=== PATIENT | female | born 1990 | race Caucasian/White ===

== ENCOUNTER → 2020-01-28 16:12 | Outpatient (CLI) | payer OTHER, SELFPAY ==
[2020-01-29 15:47] LABS: Strep Grp B PCR NEG for Grp B Strep
== END ==
PROVIDERS: Family Provider Internal Medicine; PCP Internal Medicine; Visit Provider Family Medicine
DX: Z34.90 Encounter for supervision of normal pregnancy, unspecified, unspecified trimester (principal); Z3A.37 37 weeks gestation of pregnancy
CPT/HCPCS: 87653

== ENCOUNTER 2020-02-15 03:16 | Inpatient (IN) | payer OTHER, SELFPAY ==
[2020-02-15 04:03] LABS: COVID19 -Nasal RAPID Negative (Negative)
[2020-02-15 04:23] VITALS: BP 123/70
[2020-02-15 04:30] LABS: Add Manual Diff / Slide Review NO; Basophils Absolute Auto 100 /uL (0-100); Basophils Percent Auto 0.8 % (0-2); Eosinophils Absolute Auto 400 /uL (0-450); Hematocrit 40.6 % (36-46); Hemoglobin 13.5 g/dL (12.0-16.0); Lymphocytes Absolute Auto 2100 /uL (1100-4500); Lymphocytes Percent Auto 17.6 % (25-40); Mean Corpuscular HGB Conc 33.3 % (30-36); Mean Corpuscular Hemoglobin 31.6 PG (26-34); Monocytes Absolute Auto 1000 /uL (0-900); Monocytes Percent Auto 8.2 % (3-14); Neutrophils Absolute Auto 8500 /uL (1500-7000); Neutrophils Percent Auto 70.4 % (50-75); Platelet Count 215 X10^3/uL (150-400); Red Blood Cell Count 4.28 X10^6/uL (4.0-5.2); Red Cell Distribution Width 14.2 % (11.6-14.8); White Blood Cell Count 12.1 X10^3/uL (4.5-11.0)
--- NOTE | 2020-02-15 07:54 | P.HPOB_ITS ---
OB HPI Date/Time Date of admission: 02/15/20 Date Patient Seen: 02/15/20 Time Patient Seen: 07:54 History of Present Condition Chief complaint: LABOR : 3 Para: 1 Estimated Date of Delivery: 02/16/20 Estimated Gestational Age (weeks): 39w6d Narrative: Ginger Baez is a 29 year old at 39w6d who presented with regular painful contractions. They had be in increasing in frequency and intensity. No LOF. Minimal vaginal spotting. Feeling baby move regularly. History of Present care: good care, initiated at week # (9) and pounds weight gain (40) Dating criteria: LMP confirmed by 1st trimester US Ultrasounds: normal 1st trimester US and normal mid trimester US Obstetrical complications: none Medical complications: none Preadmission Labs Blood type: O (+) positive -: Antibody screen: negative, GBS status: negative, HBsAG: negative, HIV: negative and RPR/VDLR: negative -: Chlamydia screen: not detected and Gonorrhea screen: not detected -: Rubella: immune HCT: 40.6 HCAB: negative PAP: Normal Cell-free DNA: Negative 1 hr GTT: 73 Prior (ies) History: 10/2017 - spontaneous 07/26/18 - viable girl, [id number], 3rd degree perineal laceration Evaluation Evaluation Baseline heart rate: 130 Variability: Moderate (11-25) monitor accelerations: Present monitor decelerations: Absent Contraction Frequency (minutes): 3 Uterine Contraction Intensity: Strong/Firm Cervical dilation (cm): 10 Cervical effacement (%): 100 station: 0 Laboratory results: Laboratory Tests 02/15/20 02/15/20 02/15/20 03:42 04:10 04:10 WBC 12.1 H RBC 4.28 Hgb 13.5 Hct 40.6 MCV 95.0 MCH 31.6 MCHC 33.3 RDW 14.2 Plt Count 215 Neut % (Auto) 70.4 Lymph % (Auto) 17.6 L [place] % (Auto) 8.2 Eos % (Auto) 3.0 Baso % (Auto) 0.8 Neut # (Auto) 8500 H Lymph # (Auto) 2100 [place] # (Auto) 1000 H Eos # (Auto) 400 Baso # (Auto) 100 COVID-19 PCR Negative Blood Type O Positive Antibody Screen Negative [facility] Medical History (Updated 11/25/19 @ 09:05 by Patricia Higgins RN) Subchorionic hematoma (Acute ~07/16/19) (spontaneous vaginal delivery) (Acute ~07/26/18) Surgical History (Updated 11/21/19 @ 14:44 by Leny Smith MA) H/O umbilical hernia repair (Acute ~04/23/18) Family History (Updated 11/21/19 @ 14:39 by Leny Smith MA) Grandfather Hypercholesteremia Father Hypercholesteremia Grandfather Malignant neoplasm of leg Grandmother Hypercholesteremia Diabetes mellitus Social History marital status: household members: spouse and children pets and animals: Yes (cats : Toxos ordered and Normal) education level: college occupational status: employed ([employer]) special west needs: No seatbelt use: always Smoking Status: Never smoker second hand exposure: No alcohol intake: former substance use type: does not use well-balanced diet: daily or most days caffeine: Yes (Occasional) Meds Home Medications and Allergies Home Medications Medication Instructions Recorded Confirmed Type prenat.vits,sangeeta,cab-vnid-fgkoz 1 tab PO DAILY 11/21/19 11/25/19 History Allergies Allergy/AdvReac Type Severity Reaction Status Date / Time hydrocodone [HYDROCODONE] AdvReac Mild nausea Unverified 11/25/19 15:25 Exam Vital Signs (past 8 hours): - 02/15/20 04:23 Blood Pressure 123/70 Narrative Exam Narrative: Gen: laying in bed, moaning through contractions CV: RRR, no murmurs Resp: clear to auscultation bilaterally Abd: soft, gravid, nontender Ext: trace edema Objective Labs Result Diagrams: 02/15/20 04:10 Labs: Laboratory Results - last 24 hr 02/15/20 02/15/20 02/15/20 03:42 04:10 04:10 WBC 12.1 H RBC 4.28 Hgb 13.5 Hct 40.6 MCV 95.0 MCH 31.6 MCHC 33.3 RDW 14.2 Plt Count 215 Neut % (Auto) 70.4 Lymph % (Auto) 17.6 L [place] % (Auto) 8.2 Eos % (Auto) 3.0 Baso % (Auto) 0.8 Neut # (Auto) 8500 H Lymph # (Auto) 2100 [place] # (Auto) 1000 H Eos # (Auto) 400 Baso # (Auto) 100 COVID-19 PCR Negative Blood Type O Positive Antibody Screen Negative Assessment and Plan Assessment and Plan Assessment and Plan narrative: 29yo at 39w6d here in active labor. GBS negative, Rh positive. - Expectant management, anticipate - FHT reassuring, intermittent monitoring per pt request - GBS negative, no prophylaxis indicated - Natural methods for pain control
[2020-02-15] MEDS: OXYTOCIN 10 UNIT/ML VIAL 20 UNIT (08:41)
--- NOTE | 2020-02-15 09:04 | PM.OBPRVD ---
Labor & Delivery Delivery date: 02/15/20 Intrapartal events: None Estimated blood loss (mL): 150 Anesthesia type: None Complications: None Narrative: PROCEDURE: at 39w6d presented in active labor and was admitted to Labor and Delivery. The patient progressed through the 1st stage over 6 hours. Pain was controlled with natural methods. The patient progressed through the 2nd stage over 41 minutes and delivered a viable male with APGARs 8/9 at 8:30 via without complications. Nuchal cord x1 was reduced at the perineum. The cord was clamped and cut after it stopped pulsating. Infant remained on maternal abdomen. The perineum and vagina were inspected with 2nd degree laceration repaired with 3-O Chromic. PREPROCEDURE DIAGNOSIS: Intrauterine at 39w6d GBS negative RH positive POSTPROCEDURE DIAGNOSIS: Intrauterine at 39w6d, delivered Same as preprocedure PROCEDURE: Spontaneous vaginal delivery INDUCTION: No LABOR AUGMENTATION: None ROM APPEARANCE: Clear BABY A DELIVERY TIME: 8:30 BABY A OUTCOME: Viable BABY A SEX: Male BABY A WEIGHT: 9lb1oz BABY A PRESENTATION: Vertex BABY A POSITION: OA BABY A NUCHAL CORD: x1 reduced at the perineum BABY A # CORD VESSELS: 3 PLACENTA DELIVERY TIME: 8:40 PLACENTAL DELIVERY TYPE: Spontaneous PLACENTA APPEARANCE: Intact [place] Baby 1: gender: Male score (1 min): 8 score (5 min): 9 Plan for aftercare: Normal care
[2020-02-15] MEDS: DERMOPLAST SPRAY 20% 60 ML 1 SPRAY TOP (11:08)
--- NOTE | 2020-02-16 09:03 | P.DS_ITS ---
Discharge Providers Provider Date of admission: 02/15/20 03:16 Discharge Date: 02/16/20 Primary care physician: Eve Garcia MD Consults: 02/16/20 09:05 Consult to Rubber Turner Routine Comment: Discharge provider: Yamilex Edwards MD Summary Hospital Course Date Patient Seen: 02/16/20 Time Patient Seen: 09:03 Procedures: Spontaneous vaginal delivery Hospital Course: The pt presented in active labor. She progressed to complete, using natural methods for pain control, and had an of a viable baby boy at 8:30am on 02/15/20. A second degree perineal laceration was then repaired. The pt tolerated delivery well. there were no complications. At the time of discharge she was voiding, ambulating, and passing flatus without difficulty. Her pain was well controlled. Her lochia was appropriate. She was breast- feeding with good latch. She will follow-up in clinic in 6 weeks. Will use natural methods for contraception. Peripartum Data Delivery Method: Natural Vaginal Laceration Description: Perineal - 2nd Degree Episiotomy description: None complications: none [place] 1: Gender: Male Disposition of : home Discharge Diagnosis (1) Spontaneous vaginal delivery: Status: Acute Status at Discharge Cognitive/behavioral status at discharge: oriented Functional status at discharge: independent ambulation Overall status at discharge: patient is progressing back to baseline Time Spent with Patient Time attestation: Total time spent providing and/or coordinating discharge services: Objective Labs Result Diagrams: 02/15/20 04:10 Discharge Plan Discharge Plan Patient Disposition: Home Discharge orders & Medications Prescriptions: Continued prenat.vits,sangeeta,rug-oiex-ukrgy Tablet 1 tab PO DAILY RF: 0 Follow up/Referrals: Yamilex Edwards MD [Physician] - 6 Weeks Eve Garcia MD [Primary Care Provider] - Diet/Activity/Treatments Diet: Diet as Tolerated and Regular Skin/Wound/Dressing Care Report to your healthcare provider any signs of infection, such as:: chills, fever, increased pain and unusual drainage Visit Report/Discharge Packet Instructions: DI for Labor and Delivery, Vaginal Visit Report Forms: Patient Portal/API, Stroke Signs & Symptoms Discharge Data Primary Care Provider: Eve Garcia
[2020-02-16 09:37] VITALS: BP 105/66; PULSE 68; RESP 16; TEMP 36.7
== END 2020-02-16 10:25 | disposition home or self-care (01) | DRG 807 ==
PROVIDERS: Admitting Provider Family Medicine; Family Provider Internal Medicine; PCP Internal Medicine; Referring Provider Family Medicine; Visit Provider Family Medicine
DX: O70.1 Second degree perineal laceration during delivery (principal); Z37.0 Single live birth; Z3A.39 39 weeks gestation of pregnancy; O69.81X0 Labor and delivery complicated by cord around neck, without compression, not applicable or unspecified; Z11.59 Encounter for screening for other viral diseases
CPT/HCPCS: 59050; 59410; 85025; 86850; 86900; 86901; 87635; G0379; J2590

== ENCOUNTER → 2021-06-15 07:19 | Outpatient (CLI) | payer OTHER, SELFPAY ==
[2021-06-15 09:53] LABS: Hemoglobin 13.1 g/dL (12.0-16.0)
[2021-06-15 10:33] LABS: Vitamin D 25 Hydroxy (D3) 29.8 ng/mL (30.0-100.0)
[2021-06-15 10:45] LABS: Thyroid Stimulating Hormone 2.61 uIU/mL (0.47-4.68)
[2021-06-15 10:46] LABS: Hepatitis B Surface Antigen NEGATIVE s/c (NEGATIVE); Rubella Antibody IgG 40.3 IU/mL (>15)
[2021-06-15 11:04] LABS: HIV 1 & 2 Ab/Ag 4th Gen Combo NEGATIVE (NEGATIVE); Hep C Virus Ab w/Reflex Quant NEGATIVE s/c (NEGATIVE)
[2021-06-15 11:28] LABS: Urine N gonorrhoeae NOT DETECTED
[2021-06-15 11:41] LABS: Urine Chlamydia NOT DETECTED
[2021-06-16 01:14] LABS: Hepatitis B Core Antibody Negative (Negative)
[2021-06-16 05:58] LABS: RPR Screen Non Reactive (Non Reactive)
[2021-06-16 07:36] LABS: Varicella IgG Antibody >4000 index (Immune >165)
== END ==
PROVIDERS: Family Provider Internal Medicine; PCP Family Medicine
DX: Z11.59 Encounter for screening for other viral diseases (principal); Z13.21 Encounter for screening for nutritional disorder; E78.49 Other hyperlipidemia
CPT/HCPCS: 36415; 80061; 82306; 84443; 85018; 86592; 86644; 86645; 86704; 86762; 86787; 86803; 86850; 86900; 86901; 87340; 87389; 87491; 87591

== ENCOUNTER → 2021-06-15 07:27 | Outpatient (CLI) | payer OTHER, SELFPAY ==
[2021-06-15 10:13] LABS: Cholesterol 217 mg/dL (140-199); HDL Cholesterol 86 mg/dL (40-60); LDL Cholesterol Calculated 109 mg/dL (<100); Triglycerides 108 mg/dL (35-150)
== END ==
PROVIDERS: Family Provider Internal Medicine; PCP Family Medicine; Referring Provider Family Medicine; Visit Provider Family Medicine
DX: E78.49 Other hyperlipidemia (principal)
CPT/HCPCS: 36415; 80061

== ENCOUNTER → 2021-09-01 07:06 | Outpatient (CLI) | payer OTHER, SELFPAY ==
[2021-09-01 08:34] LABS: Luteinizing Hormone < 0.216 mIU/mL
[2021-09-01 08:49] LABS: Estradiol, Total 299.1 pg/mL
== END ==
PROVIDERS: Family Provider Internal Medicine; PCP Family Medicine; Referring Provider Obstetrics & Gynecology; Visit Provider Obstetrics & Gynecology
DX: Z31.7 Encounter for procreative management and counseling for gestational carrier (principal)
CPT/HCPCS: 36415; 82670; 83002; 84144; 84702

== ENCOUNTER → 2021-10-15 07:00 | Outpatient (CLI) | payer OTHER, SELFPAY ==
[2021-10-15 08:45] LABS: HCG Quantitative /Beta subunit 166.8 mIU/mL
== END ==
PROVIDERS: Family Provider Internal Medicine; PCP Family Medicine; Referring Provider Obstetrics & Gynecology; Visit Provider Obstetrics & Gynecology
DX: Z32.00 Encounter for pregnancy test, result unknown (principal)
CPT/HCPCS: 36415; 84144; 84702

== ENCOUNTER → 2021-10-18 07:07 | Outpatient (CLI) | payer OTHER, SELFPAY ==
[2021-10-18 08:29] LABS: HCG Quantitative /Beta subunit 780.6 mIU/mL
== END ==
PROVIDERS: Family Provider Internal Medicine; PCP Family Medicine; Referring Provider Obstetrics & Gynecology; Visit Provider Obstetrics & Gynecology
DX: Z32.00 Encounter for pregnancy test, result unknown (principal)
CPT/HCPCS: 36415; 84702

== ENCOUNTER → 2021-10-25 09:17 | Outpatient (CLI) | payer OTHER, SELFPAY ==
[2021-10-25 11:26] LABS: HCG Quantitative /Beta subunit 12715 mIU/mL
== END ==
PROVIDERS: Family Provider Internal Medicine; PCP Family Medicine; Referring Provider Obstetrics & Gynecology; Visit Provider Obstetrics & Gynecology
DX: Z32.00 Encounter for pregnancy test, result unknown (principal)
CPT/HCPCS: 36415; 84702

== ENCOUNTER → 2021-12-06 10:05 | Outpatient (CLI) | payer OTHER, SELFPAY ==
[2021-12-06 10:49] LABS: Add Manual Diff / Slide Review NO; Basophils Absolute Auto 0 /uL (0-100); Basophils Percent Auto 0.3 % (0-2); Eosinophils Absolute Auto 300 /uL (0-450); Eosinophils Percent Auto 3.9 % (2-4); Hemoglobin 13.5 g/dL (12.0-16.0); Lymphocytes Absolute Auto 1400 /uL (1100-4500); Lymphocytes Percent Auto 16.9 % (25-40); Mean Corpuscular HGB Conc 34.7 % (30-36); Mean Corpuscular Hemoglobin 31.3 PG (26-34); Mean Corpuscular Volume 90.3 fL (80-100); Monocytes Absolute Auto 500 /uL (0-900); Monocytes Percent Auto 5.4 % (3-14); Neutrophils Absolute Auto 6200 /uL (1500-7000); Neutrophils Percent Auto 73.5 % (50-75); Platelet Count 304 X10^3/uL (150-400); Red Blood Cell Count 4.32 X10^6/uL (4.0-5.2); Red Cell Distribution Width 13.5 % (11.6-14.8); White Blood Cell Count 8.5 X10^3/uL (4.5-11.0)
[2021-12-06 11:01] LABS: Appearance Urine UA CLOUDY; Bilirubin Urine UA NEGATIVE (NEGATIVE); Color Urine UA YELLOW; Glucose Urine UA NEGATIVE (Negative); Ketones Urine UA NEGATIVE (NEGATIVE); Leukocyte Esterase Urine UA TRACE (NEGATIVE); Nitrite Urine UA NEGATIVE (Negative); Occult Blood Urine UA NEGATIVE (Negative); Protein Urine UA NEGATIVE (Negative); Urobilinogen Urine UA 0.2 E.U./dL (0.2)
[2021-12-06 11:02] LABS: pH Urine UA 7.5 (4.5-8.0)
[2021-12-06 12:21] LABS: Urine N gonorrhoeae NOT DETECTED
[2021-12-06 12:35] LABS: Amorphous Sediment Urine 3+; Bacteria Urine None Seen; Culture Indicated Urine Cult Not Indicated; RBC Urine None Seen (0-5/HPF); Squamous Epithelial Cell Urine 5-10 /HPF (0-5/HPF); WBC Urine 0-1/HPF (0-5/HPF)
[2021-12-06 12:43] LABS: Urine Chlamydia NOT DETECTED
[2021-12-06 17:23] LABS: Hepatitis B Surface Antigen NEGATIVE s/c (NEGATIVE); Rubella Antibody IgG 37.7 IU/mL (>15)
[2021-12-06 17:39] LABS: HIV 1 & 2 Ab/Ag 4th Gen Combo NEGATIVE (NEGATIVE); Hep C Virus Ab w/Reflex Quant NEGATIVE s/c (NEGATIVE)
[2021-12-07 06:25] LABS: RPR Screen Non Reactive (Non Reactive)
[2021-12-07 12:02] LABS: Varicella IgG Antibody >4000 index (Immune >165)
== END ==
PROVIDERS: Family Provider Internal Medicine; PCP Family Medicine; Referring Provider Family Medicine; Visit Provider Family Medicine
DX: Z11.3 Encounter for screening for infections with a predominantly sexual mode of transmission (principal); Z34.81 Encounter for supervision of other normal pregnancy, first trimester; Z3A.11 11 weeks gestation of pregnancy
CPT/HCPCS: 36415; 80055; 81003; 81015; 86787; 86803; 86850; 86900; 86901; 87086; 87389; 87491; 87591

== ENCOUNTER → 2022-01-10 12:54 | Outpatient (CLI) | payer OTHER, SELFPAY ==
[2022-01-19 19:38] LABS: AFP Value 21.9 ng/mL (.); Gest Age on Col Date 16.6 weeks (.); Gestational Age EDD (.); Insulin Dep Diabetes No (.); OSBR Risk 1IN 10000 (.); Results Report (.); Test Results *Screen Negative* (.)
== END ==
PROVIDERS: PCP Family Medicine; Referring Provider Family Medicine; Visit Provider Family Medicine
DX: Z33.3 Pregnant state, gestational carrier (principal); Z13.79 Encounter for other screening for genetic and chromosomal anomalies
CPT/HCPCS: 36415; 82105

== ENCOUNTER → 2022-02-02 09:17 | Outpatient (CLI) | payer OTHER, SELFPAY ==
--- NOTE | 2022-02-02 09:18 | DI.US.S_ITS ---
PROCEDURE: US OB >= 14 WEEKS FETUS INDICATIONS: Anatomy Scan OUTSIDE/PRIOR DATING DATA: IVF date: 09/30/2021. IVF-based estimated date of delivery (KARLA): 06/23/2022. First dating scan (date and location): 02/02/2022. Estimated date of delivery (KARLA) from first dating scan: 06/24/2022. TECHNIQUE: Real-time scanning was performed of the fetus, with image documentation and biometric measurements. Endovaginal scanning: Not performed COMPARISON: None. FINDINGS: General: A single living intrauterine gestation is present. Presentation: Breech. Placenta: Placental position is posterior , without previa. Amniotic fluid index: 11.1 cm, normal range is 5-24 cm. Single deepest vertical pocket is 3.9 cm. heart rate: 152 beats per minute. Maternal cervical canal: 3.4 cm long. Normal lower limit is 2.5 cm. biometrics: Biparietal diameter: 4.3 centimeters, 19 weeks 0 days Head circumference: 16.7 centimeters, 19 weeks 3 days Abdominal circumference: 15.3 centimeters, 20 weeks 4 days Femur length: 3.2 centimeters, 20 weeks 0 days gestational age from IVF: 19 weeks 6 days Composite gestational age from present scan: 19 weeks 5 days Estimated weight and percentile: 336 grams, 63rd percentile Anatomic survey: Neuro: Ventricles are non-dilated at less than 10 mm. Cisterna magna is normal at 3-11 mm. Cerebellum is normal in size and morphology. Nuchal skin fold: Normal at less than 6 mm between 14-21 weeks gestational age. Face: Nose and lips, facial profile are normal. Spine: No evidence for spina bifida. Heart: 4-chambered heart is present, with normal ventricular outflow tracts. Diaphragm: Diaphragm is intact. Stomach: Left-sided stomach is present. Kidneys: No hydronephrosis. Normal is less than 5 mm in 2nd trimester, less than 7 mm in 3rd trimester. Cord: 3-vessel cord has orthotopic insertion. Bladder: Normal in size. Extremities: All 4 extremities identified. IMPRESSION: 1. Single living intrauterine . 2. Normal 2nd trimester anatomy survey. No anomalies detected at this time. We strive to produce accurate, complete, and clear reports of imaging services. To assist us in improving patient care, this report was composed using standard report templates and voice recognition software. Therefore, it may contain abnormal punctuation, insertions and/or omissions. Occasional wrong-word or sound-alike substitutions may occur. Though we review the report and make efforts to correct it, we do recommend that the report be read carefully in proper context to recognize any text inaccuracies. Dictated by: Marlon Wilson M.D. on 02/02/2022 at 14:45 Approved by: Marlon Wilson M.D. on 02/02/2022 at 15:23
== END ==
PROVIDERS: PCP Family Medicine; Referring Provider Family Medicine; Visit Provider Family Medicine
DX: Z36.89 Encounter for other specified antenatal screening (principal); Z3A.19 19 weeks gestation of pregnancy
CPT/HCPCS: 76811

== ENCOUNTER → 2022-03-10 08:37 | Outpatient (CLI) | payer OTHER, SELFPAY ==
[2022-03-10 10:33] LABS: Add Manual Diff / Slide Review NO; Basophils Absolute Auto 0 /uL (0-100); Basophils Percent Auto 0.3 % (0-2); Eosinophils Absolute Auto 400 /uL (0-450); Hematocrit 33.7 % (36-46); Hemoglobin 11.5 g/dL (12.0-16.0); Lymphocytes Absolute Auto 1200 /uL (1100-4500); Lymphocytes Percent Auto 10.9 % (25-40); Mean Corpuscular HGB Conc 34.3 % (30-36); Mean Corpuscular Hemoglobin 31.6 PG (26-34); Mean Corpuscular Volume 92.1 fL (80-100); Monocytes Absolute Auto 600 /uL (0-900); Monocytes Percent Auto 5.4 % (3-14); Neutrophils Absolute Auto 8900 /uL (1500-7000); Neutrophils Percent Auto 79.4 % (50-75); Platelet Count 282 X10^3/uL (150-400); Red Blood Cell Count 3.65 X10^6/uL (4.0-5.2); Red Cell Distribution Width 13.9 % (11.6-14.8); White Blood Cell Count 11.2 X10^3/uL (4.5-11.0)
[2022-03-10 11:26] LABS: GTT (PREG) 1 Hour PP 50gm Dose 72 mg/dL (76-139)
== END ==
PROVIDERS: PCP Family Medicine; Referring Provider Family Medicine; Visit Provider Family Medicine
DX: O24.419 Gestational diabetes mellitus in pregnancy, unspecified control (principal); Z3A.24 24 weeks gestation of pregnancy
CPT/HCPCS: 36415; 82950; 85025

== ENCOUNTER → 2022-05-27 14:01 | Outpatient (CLI) | payer OTHER, SELFPAY ==
[2022-05-28 15:40] LABS: Strep Grp B PCR NEG for Grp B Strep
== END ==
PROVIDERS: PCP Family Medicine; Visit Provider Family Medicine
DX: Z36.85 Encounter for antenatal screening for Streptococcus B (principal); Z3A.36 36 weeks gestation of pregnancy
CPT/HCPCS: 87653

== ENCOUNTER → 2022-06-01 16:10 | Outpatient (CLI) | payer OTHER, SELFPAY ==
[2022-06-01 16:38] LABS: Add Manual Diff / Slide Review NO; Basophils Absolute Auto 100 /uL (0-100); Basophils Percent Auto 0.6 % (0-2); Eosinophils Absolute Auto 200 /uL (0-450); Eosinophils Percent Auto 2.3 % (2-4); Hemoglobin 11.4 g/dL (12.0-16.0); Lymphocytes Absolute Auto 1900 /uL (1100-4500); Mean Corpuscular HGB Conc 33.6 % (30-36); Mean Corpuscular Hemoglobin 30.7 PG (26-34); Mean Corpuscular Volume 91.2 fL (80-100); Monocytes Absolute Auto 800 /uL (0-900); Monocytes Percent Auto 8.5 % (3-14); Neutrophils Absolute Auto 6500 /uL (1500-7000); Neutrophils Percent Auto 68.6 % (50-75); Platelet Count 229 X10^3/uL (150-400); Red Blood Cell Count 3.73 X10^6/uL (4.0-5.2); Red Cell Distribution Width 13.4 % (11.6-14.8); White Blood Cell Count 9.4 X10^3/uL (4.5-11.0)
[2022-06-01 17:06] LABS: Alanine Aminotransferase 12 IU/L (<35); Alkaline Phosphatase 125 U/L (38-126); Aspartate Aminotransferase 21 IU/L (14-36); BUN Creatinine Ratio 13.2 (6-22); Bilirubin Total 0.1 mg/dL (0.2-1.3); Blood Urea Nitrogen 9 mg/dL (7-17); Calcium 8.8 mg/dL (8.4-10.2); Carbon Dioxide 23 mmol/L (22-32); Chloride 105 mmol/L (98-107); Estimated Glomerular Filt Rate > 60 mL/min (>60); Glucose 91 mg/dL (70-100); HEMOLYSIS < 15 (0-50); Sodium 135 mmol/L (137-145); Total Protein 6.2 g/dL (6.3-8.2)
[2022-06-01 18:28] LABS: Creatinine Urine Random 49.9 mg/dL; Protein (Total) Urine Random 6 mg/dL (0-12); Protein Creatinine Ratio Urine 0.12 GRAM/24H
[2022-06-03 16:49] LABS: Albumin 3.3 g/dL (3.5-5.0); Albumin Globulin Ratio 1.1 (1.0-2.8); Globulin 2.9 g/dL (1.7-4.1)
== END ==
PROVIDERS: PCP Family Medicine; Referring Provider Family Medicine; Visit Provider Family Medicine
DX: Z34.93 Encounter for supervision of normal pregnancy, unspecified, third trimester (principal); Z33.3 Pregnant state, gestational carrier
CPT/HCPCS: 36415; 80053; 82570; 84156; 85025

== ENCOUNTER 2022-06-17 14:05 | Outpatient (CLI) | payer OTHER, SELFPAY ==
--- NOTE | 2022-06-17 15:56 | PM.OBTRLD ---
Visit Information Visit Information Date of evaluation: 06/17/22 Primary OB Provider: Yamilex Edwards On-call OB Provider: Nelida Olsen Reason for Evaluation: Yes non-stress test Vital Signs Vital Signs: Blood pressure 129/72 heart rate 81 PFSH Medical History Spontaneous vaginal delivery Subchorionic hematoma (~07/16/19) (spontaneous vaginal delivery) (~07/26/18) Umbilical hernia with obstruction Surgical History Anesthesia H/O umbilical hernia repair (~04/23/18) Family History Grandfather Hypercholesteremia Father Hypercholesteremia Prostate cancer Grandfather Lung cancer Grandmother Hypercholesteremia Diabetes mellitus Social History marital status: number of children: 2 ((intended parents have one child)) household members: spouse and children lives independently: Yes housing: house pets and animals: Yes (1 cat, aware of toxo; intended parents have 1 dog) education level: other (Intended mother is PhD pharmacist) 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 occupational exposures/hazards: No special west needs: No travel history: over 6 months ago seatbelt use: always water heater temp set < 120 deg: Yes working smoke detector in home: Yes fire extinguisher in home: Yes carbon monox detector in home: Yes firearms in home: No do you feel safe at home: Yes Smoking Status: Never smoker second hand exposure: No alcohol intake: former substance use type: does not use during the past year weight has: remained stable well-balanced diet: daily or most days daily servings fruits/ve-4 caffeine: Yes (Occasional, minimal) Type(s) of exercise: walking, aerobic and running frequency: 3-4 times per week Evaluation Evaluation Baseline heart rate: 125 Variability: Moderate (11-25) monitor accelerations: Present Monitor Decelerations: Absent Category of Tracing: Reactive Diagnosis, Plan/Disposition Final Diagnosis (1) 39 weeks gestation of : Status: Acute Plan/Disposition Plan: 31-year-old at 39 weeks and 1 day gestation carrying a surrogate . NST performed to ensure well-being. NST reactive. Follow-up in 1 week or sooner if needed. OB Disposition: home
== END 2022-06-17 14:53 | disposition home or self-care (01) ==
LOC: LABOR 14:24 → OB 06-24 17:06
PROVIDERS: PCP Family Medicine; Referring Provider Family Medicine; Visit Provider Family Medicine
DX: O09.813 Supervision of pregnancy resulting from assisted reproductive technology, third trimester (principal); Z3A.39 39 weeks gestation of pregnancy
CPT/HCPCS: 59025; G0378; G0379

== ENCOUNTER 2022-06-22 03:48 | Observation (INO) | payer OTHER, SELFPAY ==
--- NOTE | 2022-06-22 06:28 | PM.OBTRLD ---
Visit Information Visit Information Date of evaluation: 06/22/22 Primary OB Provider: Yamilex Edwards On-call OB Provider: Emma Rincon Reason for Evaluation: Yes rule out labor Comments/Additional reasons for admission: Ginger is here because she has been awake having contractions since 9 pm. They feel similar to her other labors when she was further along, so she is somewhat confused to only be 2 cm. Baby moving well, denies loss of fluid. Ginger is here with her and the parents of the baby; she is a surrogate. Vital Signs Vital Signs: 127/68, 75 bpm, 36.6 C, 16, 97% PFSH Medical History Spontaneous vaginal delivery Subchorionic hematoma (~07/16/19) (spontaneous vaginal delivery) (~07/26/18) Umbilical hernia with obstruction Surgical History Anesthesia H/O umbilical hernia repair (~04/23/18) Family History Grandfather Hypercholesteremia Father Hypercholesteremia Prostate cancer Grandfather Lung cancer Grandmother Hypercholesteremia Diabetes mellitus Social History marital status: number of children: 2 ((intended parents have one child)) household members: spouse and children lives independently: Yes housing: house pets and animals: Yes (1 cat, aware of toxo; intended parents have 1 dog) education level: other (Intended mother is PhD pharmacist) 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 occupational exposures/hazards: No special west needs: No travel history: over 6 months ago seatbelt use: always water heater temp set < 120 deg: Yes working smoke detector in home: Yes fire extinguisher in home: Yes carbon monox detector in home: Yes firearms in home: No do you feel safe at home: Yes Smoking Status: Never smoker second hand exposure: No alcohol intake: former substance use type: does not use during the past year weight has: remained stable well-balanced diet: daily or most days daily servings fruits/ve-4 caffeine: Yes (Occasional, minimal) Type(s) of exercise: walking, aerobic and running frequency: 3-4 times per week Review of Systems Review of Systems Narrative: Reviewed in detail. All negative except as noted in HPI Exam Vital Signs (past 8 hours): See above, VSS Const General: healthy appearing, comfortable, well groomed and well hydrated Nutritional Appearance: average body habitus and well nourished Orientation: alert, awake and oriented x3 HENMT Head: normocephalic Mouth: moist mucous membranes Eyes General: appearance normal, both eyes and all related structures Resp Effort & Inspection: normal respiratory effort and able to speak in complete sentences GI Inspection: normal to inspection and other (gravid) Skin General: no rashes or lesions noted Neuro General: moves all extremities and no focal motor deficits Extrem General: normal to inspection Psych Appearance: grossly normal Evaluation Evaluation Baseline heart rate: 130 Variability: Moderate (11-25) monitor accelerations: Present Monitor Decelerations: Early Contraction Frequency (minutes): 5 Uterine Contraction Intensity: Mild Category of Tracing: Reactive Cervical dilation (cm): 2 Cervical effacement (%): 60 station: -2 Diagnosis, Plan/Disposition Final Diagnosis (1) 39 weeks gestation of : Status: Acute Problem details: RNST (2) Surrogate : Status: Acute (3) Supervision of normal first in third trimester: Status: Acute (4) Threatened labor at term: Status: Acute Problem details: NOT in labor Plan/Disposition Plan: Review options of staying and rechecking cervix in 2 hours OR going home. Ginger and her team prefer to discharge home. Discuss when to return and how to page on-call CNM. Sidelying release. Recommend napping today and good self care.
== END 2022-06-22 06:30 | disposition home or self-care (01) ==
PROVIDERS: Admitting Provider Advanced Practice Midwife; PCP Family Medicine; Referring Provider Advanced Practice Midwife; Visit Provider Advanced Practice Midwife
DX: O47.1 False labor at or after 37 completed weeks of gestation (principal); O09.813 Supervision of pregnancy resulting from assisted reproductive technology, third trimester; Z3A.39 39 weeks gestation of pregnancy
CPT/HCPCS: 59025; G0378; G0379

== ENCOUNTER 2022-06-24 02:59 | Inpatient (IN) | payer OTHER, SELFPAY ==
[2022-06-24 04:18] VITALS: BP 136/72
--- NOTE | 2022-06-24 05:19 | P.HPOB_ITS ---
OB HPI Date/Time Date of admission: 06/24/22 Date Patient Seen: 06/24/22 Time Patient Seen: 05:10 History of Present Condition Chief complaint: Spontaneous labor of surrogate KARLA Calculator Estimated Delivery Date Method Current WG Current Estimate 06/23/22 Manual 40w 1d 5 day ila o transfer on 10/05/21 Other Estimates 06/19/22 Ultrasound #1 40w 5d Estimated Gestational Age (weeks): 40w1d : 4 Para: 2 care: good care, initiated at week # (with embryo transfer at 5 days. Care initiated at [facility] at 11 weeks), number of visits (12) and pounds weight gain (39.5) Dating criteria OB: other (based on embryo transfer date and confirmed by ultrasound) Ultrasounds: normal 1st trimester US and normal mid trimester US Obstetrical complications: none Medical complications OB: none External History Prior Pregnancies: 2 prior term NSVB : 3 Para: 2 Estimated Date of Delivery: 06/23/22 Preadmission Labs Last OB Lab Results: Blood Type O Positive 12/06/21 10:12 Antibody Screen Negative 12/06/21 10:12 Hematocrit 37.0 % (36-46) 06/24/22 11:41 Hemoglobin 12.3 g/dL (12.0-16.0) 06/24/22 11:41 Hepatitis B Surface Antigen Negative s/c (NEGATIVE) 12/06/21 10 :12 Hepatitis C Antibody Negative s/c (NEGATIVE) 12/06/21 10:12 Rubella Antibody 37.7 IU/mL (>15) 12/06/21 10:12 Varicella-Zoster IgG Antibody >4000 index (Immune >165) 2 10:12 Glucose 1 Hour 72 mg/dL (76-139) L 03/10/22 10:05 Group B Streptococcus (PCR) Neg for grp b strep 05/27/22 14:01 Prior (ies) Past Pregnancies Del. Date GA/Weeks Labor Lgth Wt Sex Route Outcome Anesthesia Place Delv Breastfeed Preg Comp Name 10/15/17 spontaneous spontaneous 07/26/18 40.1 12 3.515 kg Female vaginal live - full term non e [place] 11 months none [place] Baez 02/15/20 39.6 7 4.111 kg Male vaginal live - full term none [facility] none [place] Delivery Date: 07/26/18 Last Updated by: Patricia Higgins R.N. *Easy first 7 hours of labor *Partial 3rd degree laceration *Meconium *Late and Mild PPD with return to work Evaluation Evaluation Baseline heart rate: 115 Variability: Moderate (11-25) monitor accelerations: Present Monitor Decelerations: Absent Contraction Frequency (minutes): 3 Uterine Contraction Intensity: Strong/Firm Status: Category l Dilation (cm): 5 Effacement (%): 80 Dilation: >/=5 cm Effacement: >/=80% station: -2 Position of cervix: mid Consistency: soft Bills score: 10 PFSH Medical History Spontaneous vaginal delivery Subchorionic hematoma (~07/16/19) (spontaneous vaginal delivery) (~07/26/18) Umbilical hernia with obstruction Surgical History Anesthesia H/O umbilical hernia repair (~04/23/18) Family History Grandfather Hypercholesteremia Father Hypercholesteremia Prostate cancer Grandfather Lung cancer Grandmother Hypercholesteremia Diabetes mellitus Social History marital status: number of children: 2 ((intended parents have one child)) household members: spouse and children lives independently: Yes housing: house pets and animals: Yes (1 cat, aware of toxo; intended parents have 1 dog) education level: other (Intended mother is PhD pharmacist) 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 occupational exposures/hazards: No special west needs: No travel history: over 6 months ago seatbelt use: always water heater temp set < 120 deg: Yes working smoke detector in home: Yes fire extinguisher in home: Yes carbon monox detector in home: Yes firearms in home: No do you feel safe at home: Yes Smoking Status: Never smoker second hand exposure: No alcohol intake: former substance use type: does not use during the past year weight has: remained stable well-balanced diet: daily or most days daily servings fruits/ve-4 caffeine: Yes (Occasional, minimal) Type(s) of exercise: walking, aerobic and running frequency: 3-4 times per week Meds Home Medications and Allergies Home Medications Medication Instructions Recorded Confirmed Type prenat.vits,sangeeta,aje-lkrw-zaaze 1 tab PO DAILY 11/21/19 06/24/22 History omega 1-lxp-gwq-fish oil 100 See Rx Instructions .Route .COMPLEX 11/29/21 06/24/22 History mg-160 mg-1,000 mg capsule (Fish Oil) Allergies Allergy/AdvReac Type Severity Reaction Status Date / Time hydrocodone [HYDROCODONE] AdvReac Mild nausea Verified 06/24/22 15:30 Review of Systems Review of Systems Narrative: Review of systems negative except as noted in HPI. OB Exam Vital signs Blood Pressure: 136/72 Pulse Rate: 52 Respiratory Rate: 18 Temperature: 36.4 F Narrative Exam Narrative: A&O x 4. HENMT Head: normal to inspection and normocephalic Eyes General: appearance normal, both eyes and all related structures Resp Effort & Inspection: normal respiratory effort and able to speak in complete sentences Extremities Lower extremity: Yes normal to inspection and edema Laterality: right GI Inspection: normal to inspection and other (Gravid) External Female Exam: Yes normal external appearance Presentation: vertex Estimated Weight (lbs): 8 Amniotic Fluid: other (intact membranes) Objective Labs 06/24/22 11:41 06/24/22 11:41 Assessment and Plan Assessment and Plan Assessment and Plan narrative: at 40w1d by embryo transfer date GBS neg Rh pos Active labor FHR Cat 1 Surrogate Plan: Admit to L&D. No IV per pt preference; IM pitocin and hemorrhage kit in room Intermittent monitoring after Cat 1 admission strip Anticipate Time Spent with Patient Total time spent with greater than 50% in coordination of care (as documented) at patient's floor/unit and/or counseling patient:: 15-24 minutes
[2022-06-24] MEDS: OXYTOCIN 10 UNIT/ML VIAL IM (06:16)
[2022-06-24] MEDS: ACETAMINOPHEN 325 MG TABLET 975 MG PO (07:00)
[2022-06-24] MEDS: IBUPROFEN 400 MG TABLET 800 MG PO ×3 (08:35→23:35)
[2022-06-24 11:52] LABS: Add Manual Diff / Slide Review NO; Basophils Absolute Auto 100 /uL (0-100); Basophils Percent Auto 0.6 % (0-2); Eosinophils Absolute Auto 0 /uL (0-450); Eosinophils Percent Auto 0.2 % (2-4); Hemoglobin 12.3 g/dL (12.0-16.0); Lymphocytes Absolute Auto 1200 /uL (1100-4500); Lymphocytes Percent Auto 7.5 % (25-40); Mean Corpuscular HGB Conc 33.1 % (30-36); Mean Corpuscular Hemoglobin 30.4 PG (26-34); Mean Corpuscular Volume 91.7 fL (80-100); Monocytes Absolute Auto 1000 /uL (0-900); Monocytes Percent Auto 6.3 % (3-14); Neutrophils Absolute Auto 14000 /uL (1500-7000); Neutrophils Percent Auto 85.4 % (50-75); Platelet Count 190 X10^3/uL (150-400); Red Blood Cell Count 4.04 X10^6/uL (4.0-5.2); Red Cell Distribution Width 14.4 % (11.6-14.8); White Blood Cell Count 16.4 X10^3/uL (4.5-11.0)
[2022-06-24 12:09] LABS: Aspartate Aminotransferase 36 IU/L (14-36); BUN Creatinine Ratio 15.4 (6-22); Blood Urea Nitrogen 12 mg/dL (7-17); Estimated Glomerular Filt Rate > 60 mL/min (>60); Uric Acid 7.4 mg/dL (2.5-6.2)
[2022-06-24 19:50] VITALS: BP 163/82; PULSE 47
[2022-06-24] MEDS: LABETALOL 100 MG TABLET PO (19:50)
[2022-06-24 19:53] VITALS: BP 136/72; PULSE 52; RESP 18; TEMP 2.4; TEMP 36.4
--- NOTE | 2022-06-24 20:00 | PM.OBPRVD ---
Events: Other (IVF surrogate ) Labor & Delivery Delivery date: 06/24/22 Intrapartal Events: Precipitous Labor < 3 hours ((active)) Cervical ripening method: none Induction method: none Delivery monitor: external FHT (intermittent) Route of delivery: Quantitative Blood Loss: 550 Anesthesia Type: None Complications: none Narrative: Ginger labored well with contractions standing, then on hands and knees, and then on her side. Began gently spontaneously pushing approx 0510 and became more active with pushing approx 0545. FHR ressuring by doppler throughout 2nd stage. Head delivered easily within three contractions with spontaneous delivery of shoulders as baby was somersaulted through loose nuchal/bandolier cord. Nargis gathered her baby in her arms after cord untangled and did skin to skin while doing delayed cord clamping. SCOTT double clamped cord and then Jeremy cut the cord approx 10 min after delivery. Placenta was spontaneously delivered and appeared intact with 3 vessel cord. Bleeding initially light, but large clots expressed with uterine massage. 10 U of IM pitocin given in L shoulder. Fundus firm but above umbilicus and off to maternal right, so Ginger got up to void, but was unable. With increased discomfort, more uterine massage resulted in another 50 mL clot and easy expression of approx 250 mL of urine. Methergine given IM in thigh. Bleeding normal after that with total QBL of 550 mL. Ginger was beaming watching Nargis and Jeremy with their daughter. Baby 1: Infant gender: Female Presentation: vertex Position: Occiput Posterior Placenta delivery description: Spontaneous score (1 min): 9 score (5 min): 9 weight: 3824 kg Plan for aftercare: Routine care
--- NOTE | 2022-06-24 20:14 | P.PNOB_ITS ---
Exam Vital Signs (past 8 hours): 06/24/22 19:53 06/24/22 19:50 Temperature 36.4 F L Pulse Rate 52 L 47 L Respiratory Rate 18 Blood Pressure 136/72 163/82 H Narrative Exam Narrative: Susie blood pressure was elevated x 1 on admission, then normal until 2 hours . Since then, has mostly been in the 140s/80s, with highest 152/80 (until 163/82 as this note was being written) and lowest 134/76. Ginger had mild headache until she took a nap; then it was gone. Denies visual changes or epigastric pain. Feeling tired but good. A little shaky. Eating dinner. Const General: healthy appearing, comfortable, well groomed and well hydrated Nutritional Appearance: average body habitus Orientation: alert, awake and oriented x3 Resp Effort & Inspection: normal respiratory effort and able to speak in complete sentences Auscultation: clear to auscultation bilaterally Cardio Rate: regular rate Rhythm: regular rhythm Heart Sounds: S1 normal, S2 normal and normal, physiologic split S2 Psych Appearance: grossly normal and well kempt Mental Status: mental status grossly normal Speech and Movement: speech and movement normal Mood: euphoric mood Affect: normal affect Attitude: cooperative Thought Process: normal Thought Content: normal Judgment: judgment good Objective Labs 06/24/22 11:41 06/24/22 11:41 Labs: Laboratory Results - last 24 hr 06/24/22 06/24/22 11:41 11:41 WBC 16.4 H RBC 4.04 Hgb 12.3 Hct 37.0 MCV 91.7 MCH 30.4 MCHC 33.1 RDW 14.4 Plt Count 190 Neut % (Auto) 85.4 H Lymph % (Auto) 7.5 L Lawrence % (Auto) 6.3 Eos % (Auto) 0.2 L Baso % (Auto) 0.6 Neut # (Auto) 06401 H Lymph # (Auto) 1200 Lawrence # (Auto) 1000 H Eos # (Auto) 0 Baso # (Auto) 100 BUN 12 Creatinine 0.78 Estimated GFR > 60 BUN/Creatinine Ratio 15.4 Uric Acid 7.4 H AST 36 Assessment & Plan Plan day: 0 plan OB: routine care (closely watch blood pressure) Comments: Conversation with Ginger to discuss options for care re: elevated BP: 1. Consider discharge home and close watch of BP. 2. Consider staying overnight to evaluate BP and discharge home tomorrow. 3. Labetalol 100 mg once prior to discharge to confirm effectiveness. Decided on this plan of care and 100 mg labetalol given. After most recent elevated BP in severe range, recommendation to stay overnight for observation. Ginger agrees with this plan. Discontinue labetalol r/to low HR. Switch to nifedipine XL 30 mg for BP treatment. Re-evaluate discharge plan in AM. Time Spent With Patient Time: Total time spent is greater than 50% in coordination of care (as documented) at patient's floor/unit and/or counseling patient: Time with patient: 25 - 35 minutes
[2022-06-24 20:45] VITALS: BP 124/65; PULSE 49
[2022-06-25 08:08] VITALS: BP 124/68; PULSE 52
[2022-06-25] MEDS: LABETALOL 100 MG TABLET PO (08:08)
[2022-06-25] MEDS: IBUPROFEN 400 MG TABLET 800 MG PO (08:32)
--- NOTE | 2022-06-25 10:54 | P.DS_ITS ---
Discharge Providers Provider Date of admission: 06/24/22 02:59 Discharge Date: 06/25/22 Primary care physician: Yamilex Edwards MD Consults: 06/25/22 08:59 Consult to General Dentist Routine Comment: Discharge provider: Emma Rincon CNM, ARNP Summary Hospital Course Date Patient Seen: 06/25/22 Time Patient Seen: 06:54 Diagnoses: NSVB hypertension Hospital Course: Ginger was admitted in active labor, progressed well to complete and pushed effectively for a lovel NSVB. Baby girl immediately placed skin to skin with her mother while Ginger (surrogate) observed. QBL 550 managed with IM pitocin and IM methergine. Elevated BPs began 2 hours with most in 140s/80s. Labetalol 100 mg PO given x 2 with good results. Otherwise uncomplicated course. Peripartum Data Infant Delivery Method: Natural Vaginal Laceration Description: Perineal - 1st Degree Episiotomy description: None Procedures: none Monson 1: Gender: Female Disposition of : other (home with parents (Ginger was surrogate)) Status at Discharge Cognitive/behavioral status at discharge: oriented, at baseline, oriented and calm Functional status at discharge: independent ambulation Overall status at discharge: patient is progressing back to baseline Time Spent with Patient Time attestation: Total time spent providing and/or coordinating discharge services: Time spent: Less than 30 minutes Specific discharge activities: BP checks twice per day. Call with elevated values. Objective Labs 06/24/22 11:41 06/24/22 11:41 Labs: Laboratory Results - last 24 hr 06/24/22 06/24/22 11:41 11:41 WBC 16.4 H RBC 4.04 Hgb 12.3 Hct 37.0 MCV 91.7 MCH 30.4 MCHC 33.1 RDW 14.4 Plt Count 190 Neut % (Auto) 85.4 H Lymph % (Auto) 7.5 L Bartholomew % (Auto) 6.3 Eos % (Auto) 0.2 L Baso % (Auto) 0.6 Neut # (Auto) 13453 H Lymph # (Auto) 1200 Bartholomew # (Auto) 1000 H Eos # (Auto) 0 Baso # (Auto) 100 BUN 12 Creatinine 0.78 Estimated GFR > 60 BUN/Creatinine Ratio 15.4 Uric Acid 7.4 H AST 36 Exam Vital Signs (past 8 hours): BP 123/63, 133/79 HR 52 bpm Temp 36.8 C O2 sat 99% Narrative Exam Narrative: Ginger is feeling generally well. Pain under control. as parents desire without issue. Concerned if scar tissue on left breast will impede /pumping. Const General: healthy appearing, comfortable and well hydrated Orientation: alert, awake and oriented x3 HENMT Head: normal to inspection Eyes General: appearance normal, both eyes and all related structures Neck Neck: normal visual inspection and full ROM Chest Breast inspection: normal inspection of the breasts and Other (scar tissue noted on areola on left breast) Resp Effort & Inspection: normal respiratory effort Cardio Rate: regular rate GI Palpation: soft Other: Gravid. Fundus U/U. Skin General: no rashes or lesions noted Extrem Right lower extremity: edema (right leg 2+, left leg 1+, non-pitting) Details: non-pitting and 2+ Psych Mental Status: mental status grossly normal Mood: congruent mood Affect: normal affect Discharge Plan Discharge Plan Patient Disposition: Home Provider Discharge Comment: Discharge home with instructions to take labetalol 100 mg BID and to call with symptoms of hypotension or low HR. Next dose due at 1930. Check BP twice per day and report anything higher than 150/100. Follow up with Dr. Olsen for BP check on Monday. Reviewed warning signs for pre-eclampsia and how to contact on-call provider with concerns prior to Monday. Reviewed instructions in detail including normal versus abnormal bleeding, emotional changes, how to manage . Recommend being very low prasad for 2 weeks for best physical and emotional recovery. Discussed scar tissue on left areola. Encouraged stimulation of nipple and hand expression to help. Consider appointment with IBCLC. Discharge orders & Medications Prescriptions: New labetalol 100 mg tablet 100 mg PO BID Qty: 20 0RF Rx Instructions: Take 1 pill every 12 hours until directed to discontinue. Continued prenat.vits,sangeeat,smz-iwdh-hxlve Tablet 1 tab PO DAILY Fish Oil 100-160-1,000 mg capsule See Rx Instructions .ROUTE .COMPLEX Rx Instructions: take 1 tab daily Follow up/Referrals: Yamilex Edwards MD [Primary Care Provider] - Discharge Health Status Health Concerns: hypertension Diet/Activity/Treatments Diet: Diet as Tolerated and Regular Activity: Low prasad during recovery (2 weeks) Skin/Wound/Dressing Care Report to your healthcare provider any signs of infection, such as:: chills, fever, unusual drainage and unusual redness Visit Report/Discharge Packet Stand Alone Forms: Patient Portal/API, Stroke Signs & Symptoms Discharge Data Primary Care Provider: Yamilex Edwards
--- NOTE | 2022-06-26 23:01 | PM.CALLCOV.1 ---
Call Coverage Note Note Date of Patient Contact: 06/26/22 Time of Patient Contact: 21:00 Narrative of Care Provided: Spoke with Ginger, with hypertension, several times since discharge. Overall feeling good; denies headache (except where noted), visual changes, epigastric pain. Home BP report Sat 06/25 (day of discharge) - taking 100 mg labetalol BID between 7-8 am/pm 1230 112/68 1630 130/82 1999 124/69 Monday06/26/22 0700 140/84 1115 136/84 1510 160/84 - called this CNM who recommended taking dose of labetalol now. 1620 149/93 1747 - reports mild headache, took 1000 mg acetaminophen. Will call if worsens. 1999 147/90 (as took labetalol dose) 2105 136/80 Recommend staying on labetalol 100 mg TID (q 8 hours) for now. Plan to see someone in [facility] office tomorrow for BP check and continued plan of care. Reviewed warning signs for pre-eclampsia and when to reach out to on-call provider.
== END 2022-06-25 11:00 | disposition home or self-care (01) | DRG 806 ==
PROVIDERS: Admitting Provider Nurse Practitioner Obstetrics & Gynecology; PCP Family Medicine; Visit Provider Nurse Practitioner Obstetrics & Gynecology
DX: O62.3 Precipitate labor (principal); O47.1 False labor at or after 37 completed weeks of gestation; Z37.0 Single live birth; Z3A.40 40 weeks gestation of pregnancy; O90.89 Other complications of the puerperium, not elsewhere classified; R03.0 Elevated blood-pressure reading, without diagnosis of hypertension; O09.813 Supervision of pregnancy resulting from assisted reproductive technology, third trimester; Z3A.39 39 weeks gestation of pregnancy
CPT/HCPCS: 36415; 59025; 59050; 84450; 84550; 85025; G0378; G0379; J2590

== ENCOUNTER → 2022-06-27 10:46 | Outpatient (CLI) | payer OTHER, SELFPAY ==
[2022-06-27 11:09] LABS: Add Manual Diff / Slide Review NO; Basophils Absolute Auto 100 /uL (0-100); Basophils Percent Auto 0.8 % (0-2); Eosinophils Absolute Auto 300 /uL (0-450); Eosinophils Percent Auto 2.9 % (2-4); Hemoglobin 11.7 g/dL (12.0-16.0); Lymphocytes Absolute Auto 1300 /uL (1100-4500); Lymphocytes Percent Auto 13.1 % (25-40); Mean Corpuscular HGB Conc 33.3 % (30-36); Mean Corpuscular Hemoglobin 30.3 PG (26-34); Monocytes Absolute Auto 500 /uL (0-900); Monocytes Percent Auto 5.2 % (3-14); Neutrophils Absolute Auto 7700 /uL (1500-7000); Platelet Count 260 X10^3/uL (150-400); Red Blood Cell Count 3.85 X10^6/uL (4.0-5.2); Red Cell Distribution Width 14.9 % (11.6-14.8); White Blood Cell Count 9.9 X10^3/uL (4.5-11.0)
[2022-06-27 11:14] LABS: Alanine Aminotransferase 27 IU/L (<35); Albumin 3.5 g/dL (3.5-5.0); Albumin Globulin Ratio 1.2 (1.0-2.8); Alkaline Phosphatase 106 U/L (38-126); Aspartate Aminotransferase 37 IU/L (14-36); BUN Creatinine Ratio 17.5 (6-22); Bilirubin Total 0.3 mg/dL (0.2-1.3); Blood Urea Nitrogen 14 mg/dL (7-17); Calcium 8.6 mg/dL (8.4-10.2); Carbon Dioxide 26 mmol/L (22-32); Chloride 106 mmol/L (98-107); Estimated Glomerular Filt Rate > 60 mL/min (>60); Globulin 2.9 g/dL (1.7-4.1); Glucose 86 mg/dL (70-100); HEMOLYSIS < 15 (0-50); Potassium 4.6 mmol/L (3.4-5.1); Sodium 137 mmol/L (137-145); Total Protein 6.4 g/dL (6.3-8.2)
[2022-06-27 13:00] LABS: Creatinine Urine Random 67.9 mg/dL; Protein (Total) Urine Random 39 mg/dL (0-12); Protein Creatinine Ratio Urine 0.57 GRAM/24H
== END ==
PROVIDERS: PCP Family Medicine; Referring Provider Obstetrics & Gynecology; Visit Provider Obstetrics & Gynecology
DX: O16.5 Unspecified maternal hypertension, complicating the puerperium (principal)
CPT/HCPCS: 36415; 80053; 82570; 84156; 85025

== ENCOUNTER → 2022-07-01 09:06 | Outpatient (CLI) | payer OTHER, SELFPAY ==
[2022-07-01 10:34] LABS: Creatinine Urine Random 152.7 mg/dL; Protein (Total) Urine Random 80 mg/dL (0-12); Protein Creatinine Ratio Urine 0.52 GRAM/24H
[2022-07-01 11:59] LABS: Alanine Aminotransferase 41 IU/L (<35); Albumin 3.8 g/dL (3.5-5.0); Albumin Globulin Ratio 1.3 (1.0-2.8); Alkaline Phosphatase 104 U/L (38-126); Aspartate Aminotransferase 35 IU/L (14-36); BUN Creatinine Ratio 22.4 (6-22); Bilirubin Total 0.3 mg/dL (0.2-1.3); Blood Urea Nitrogen 17 mg/dL (7-17); Calcium 8.4 mg/dL (8.4-10.2); Carbon Dioxide 19 mmol/L (22-32); Chloride 107 mmol/L (98-107); Estimated Glomerular Filt Rate > 60 mL/min (>60); Globulin 2.9 g/dL (1.7-4.1); Glucose 72 mg/dL (70-100); HEMOLYSIS < 15 (0-50); Potassium 4.6 mmol/L (3.4-5.1); Sodium 136 mmol/L (137-145); Total Protein 6.7 g/dL (6.3-8.2)
== END ==
PROVIDERS: PCP Family Medicine; Referring Provider Obstetrics & Gynecology; Visit Provider Obstetrics & Gynecology
DX: O16.5 Unspecified maternal hypertension, complicating the puerperium (principal)
CPT/HCPCS: 36415; 80053; 82570; 84156

== ENCOUNTER 2022-07-22 09:03 | Emergency (ER) | payer OTHER, SELFPAY ==
[2022-07-22 09:22] VITALS: BP 93/64; PULSE 95; RESP 18; TEMP 36.9; O2SAT 97; BMI 21.5
--- NOTE | 2022-07-22 09:24 | DI.US.S_ITS ---
PROCEDURE: US PERIPH VENOUS UP EXTREM LT INDICATIONS: swelling TECHNIQUE: Real-time imaging, as well as color and pulse Doppler interrogation, was performed of the left upper extremity deep veins from the inferior neck to the antecubital fossa. COMPARISON: None. FINDINGS: The internal jugular vein, visualized portions of the subclavian vein, axillary, and brachial veins are free of intraluminal thrombus. Where physically possible, the veins are normally compressible. Color and pulse Doppler demonstrate normal intraluminal flow, with expected phasicity and pulsatility. Additional scanning of the cephalic and basilic veins of the superficial system demonstrate normal compressibility, without thrombus. IMPRESSION: No left upper extremity DVT. Dictated by: Adin Cabral M.D. on 07/22/2022 at 10:10 Approved by: Adin Cabral M.D. on 07/22/2022 at 10:12
--- NOTE | 2022-07-22 09:24 | ED.UPPEXIN ---
HPI - Extremity Injury (Upper) General Chief Complaint: Extremity Problem,Nontraumatic Stated Complaint: gave T-30 thinks she has a blood clot Time Seen by Provider: 07/22/22 09:12 History of Present Illness HPI narrative: Patient 31 years old 30 days presenting today left arm swelling. She reports that yesterday she woke up with some mild swelling in her left arm dull definite weakness possibly some numbness. No chest pain no shortness breath no other leg weakness or swelling. She is concerned for possible DVT. She reports that she requested not have an IP during labor I do not see documentation that she did receive an IV during labor or afterwards but she can not remember. She previously had hypertension and was put on labetalol but she is no longer taking. No fevers no erythema. She reports maybe she slept on it wrong she is no neck pain Related Data Home Medications Medication Instructions Recorded Confirmed prenat.vits,sangeeta,dqd-vpda-lxbll 1 tab PO DAILY 11/21/19 06/24/22 omega 4-pmy-skc-fish oil 100 See Rx Instructions .Route .COMPLEX 11/29/21 06/24/22 mg-160 mg-1,000 mg capsule (Fish Oil) Previous Rx's Medication Instructions Recorded labetalol 100 mg tablet 100 mg PO BID 06/25/22 hypertension #20 tabs labetalol 100 mg tablet 100 mg PO TID PRN 06/27/22 hypertension #90 tabs Allergies Allergy/AdvReac Type Severity Reaction Status Date / Time hydrocodone [HYDROCODONE] AdvReac Mild nausea Verified 07/22/22 09:29 Review of Systems Review of Systems ROS Unobtainable: All systems reviewed & are unremarkable except as noted in HPI and below Patient History Medical History Spontaneous vaginal delivery Subchorionic hematoma (~07/16/19) (spontaneous vaginal delivery) (~07/26/18) Umbilical hernia with obstruction Surgical History Anesthesia H/O umbilical hernia repair (~04/23/18) Family History Grandfather Hypercholesteremia Father Hypercholesteremia Prostate cancer Grandfather Lung cancer Grandmother Hypercholesteremia Diabetes mellitus Social History marital status: number of children: 2 ((intended parents have one child)) household members: spouse and children lives independently: Yes housing: house pets and animals: Yes (1 cat, aware of toxo; intended parents have 1 dog) education level: other (Intended mother is PhD pharmacist) 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 occupational exposures/hazards: No special west needs: No travel history: over 6 months ago seatbelt use: always water heater temp set < 120 deg: Yes working smoke detector in home: Yes fire extinguisher in home: Yes carbon monox detector in home: Yes firearms in home: No do you feel safe at home: Yes Smoking Status: Never smoker second hand exposure: No alcohol intake: former substance use type: does not use during the past year weight has: remained stable well-balanced diet: daily or most days daily servings fruits/ve-4 caffeine: Yes (Occasional, minimal) Type(s) of exercise: walking, aerobic and running frequency: 3-4 times per week Smoking Status: Never smoker Exam Initial Vital Signs Initial Vital Signs: Vital Signs Temperature 98.4 F 07/22/22 09:22 Pulse Rate 95 H 07/22/22 09:22 Respiratory Rate 18 07/22/22 09:22 Blood Pressure 93/64 07/22/22 09:22 Pulse Oximetry 97 07/22/22 09:22 Oxygen Delivery Method Room Air 07/22/22 09:22 GENERAL: Alert well-appearing 31-year-old female and in no acute distress. HEENT: Head atraumatic,EOMI, pupils reactive, CARDIOVASCULAR: Regular rate and rhythm without murmurs, rubs or gallops. RESPIRATORY: Breath sounds equal bilaterally, no wheezes rales or rhonchi. EXTREMITIES: Normal range of motion, no clubbing or edema. Neurovascularly intact Possible mild swelling in left arm no erythema distal radial pulse intact sensation equal on both sides NEUROLOGICAL: Alert and oriented x4. SKIN: Warm, dry, no laceration, no petechiae, no rashes or lesions. Scores NIH Stroke Scale Level of Conciousness: Alert, keenly responsive Ask month/age: Answers both questions correctly. Open/close eyes, close hand: Performs both tasks correctly Best gaze horizontal: Normal Visual multani: No visual loss Facial palsy: Normal symetrical movement Left arm drift: No drift for full 10 sec Right arm drift: No drift for full 10 sec Left leg drift: No drift for full 5 sec Right leg drift: No drift for full 5 sec Limb ataxia: Absent Sensory on face/arms/legs: Mild to moderate sensory loss, can tell touch Best language: No aphasia, normal Dysarthria: Normal Extinction or inattention: No abnormality Total NIH Stroke scale score: 1 Course Orders Ordered: ED Orders 07/22/22 09:24 US periph venous up extrem lt Stat Vital Signs Vital signs: Vital Signs - 8 hr 07/22/22 09:22 07/22/22 10:51 Temperature 98.4 F Pulse Rate 95 H 73 Respiratory Rate 18 18 Blood Pressure 93/64 132/66 Pulse Oximetry 97 96 Oxygen Delivery Method Room Air Room Air MDM - Extremity Injury (Upper) Imaging Data US - DVT: Radiologist's Impression: PROCEDURE:? US PERIPH VENOUS UP EXTREM LT ? INDICATIONS:? swelling ? TECHNIQUE:? Real-time imaging, as well as color and pulse Doppler interrogation, was performed of the left upper extremity deep veins from the inferior neck to the antecubital fossa.? ? COMPARISON:? None. ? FINDINGS:? The internal jugular vein, visualized portions of the subclavian vein, axillary, and brachial veins are free of intraluminal thrombus.? Where physically possible, the veins are normally compressible.? Color and pulse Doppler demonstrate normal intraluminal flow, with expected phasicity and pulsatility.? Additional scanning of the cephalic and basilic veins of the superficial system demonstrate normal compressibility, without thrombus.? ? IMPRESSION:? No left upper extremity DVT. ? ? Dictated by: Adin Cabral M.D. on 07/22/2022 at 10:10 ? [facility] Narrative Medical decision making narrative: 31-year-old healthy female about 30 days presents with some mild left arm and some light touch neuropathy. Ultrasound does not show any DVT a questionable even if she had an IV in that arm my suspicion for DVT is low. Other considerations peripheral neuropathy CVA and TIA. She does not have any other symptoms NIH stroke scale of 1. She and I discussed further workup at this time she would like to go home and monitor it which I think is appropriate. She has good strength Discharge Plan Departure Patient Disposition: Home Clinical Impression: Arm pain, left Instructions: DI for Arm Pain Activity Restrictions/Additional Instructions: *You have been diagnosed with left arm pain *What to do: At this time there is no evidence of blood clot in your left arm. Please monitor elevate ice as needed. *Continue to take medications as directed *Follow up with your primary care provider in 2-3 days or call [phone] *Return to ER if you should have increasing swelling redness weakness numbness or any new, worsening or concerning symptoms Prescriptions: No Action labetalol 100 mg tablet 100 mg PO TID PRN (Reason: hypertension) Qty: 90 1RF prenat.vits,sangeeta,enx-zfja-uizsg Tablet 1 tab PO DAILY Fish Oil 100-160-1,000 mg capsule See Rx Instructions .ROUTE .COMPLEX Rx Instructions: take 1 tab daily labetalol 100 mg tablet 100 mg PO BID Qty: 20 0RF Rx Instructions: Take 1 pill every 12 hours until directed to discontinue. Referrals: Yamilex Edwards MD [Primary Care Provider] - Stand Alone Forms: Patient Portal/API
[2022-07-22 10:51] VITALS: BP 132/66; PULSE 73; RESP 18; O2SAT 96
== END 2022-07-22 10:54 | disposition home or self-care (01) ==
PROVIDERS: Emergency Provider Emergency Medicine; PCP Family Medicine
DX: M79.602 Pain in left arm (principal); R29.701 NIHSS score 1
CPT/HCPCS: 93971; 99283

== ENCOUNTER 2022-08-13 04:09 | Emergency (ER) | payer OTHER, SELFPAY ==
[2022-08-13 04:21] VITALS: BP 122/62; PULSE 96; RESP 18; TEMP 36.9; O2SAT 100; BMI 22.2
--- NOTE | 2022-08-13 04:26 | ED.SKABFB ---
HPI - Skin/Abscess/Foreign Bdy General Chief complaint: Skin/Abscess/Foreign Body Stated complaint: CHILLS/PAIN TO LT. BREAST Time Seen by Provider: 08/13/22 04:22 Mode of arrival: Ambulatory History of Present Illness HPI narrative: 31-year-old female nonsmoker delivered a child 7 weeks ago and exclusively breastfeed, presents tonight with a chief complaint of left breast pain largely at the outer edge with perceived fullness. She admits that it feels slightly less engorged after pumping. She has had some runny nose and nasal congestion but denies any sore throat, cough, shortness of breath. She has had chills, but denies fever. She denies vaginal bleeding, discharge, or urinary complaints Related Data Home Medications Medication Instructions Recorded Confirmed omega 1-zvo-wgn-fish oil 100 See Rx Instructions .Route .COMPLEX 11/29/21 08/12/22 mg-160 mg-1,000 mg capsule (Fish Oil) Previous Rx's Medication Instructions Recorded labetalol 100 mg tablet 100 mg PO BID 06/25/22 hypertension #20 tabs labetalol 100 mg tablet 100 mg PO TID PRN 06/27/22 hypertension #90 tabs dicloxacillin 500 mg capsule 500 mg PO Q6H 7 days #28 caps 08/13/22 Allergies Allergy/AdvReac Type Severity Reaction Status Date / Time hydrocodone [HYDROCODONE] AdvReac Mild nausea Verified 08/12/22 14:02 Review of Systems Review of Systems Narrative: GENERAL: Denies chills, fatigue, malaise, fever, sweats. HEENT: Denies sinus pain, ear pain, sore throat, difficulty swallowing, dizziness. RESPIRATORY: Denies dyspnea, cough, wheezing, hemoptysis, sputum. CARDIOVASCULAR: Denies chest pain, palpitations, orthopnea, edema, GASTROINTESTINAL: Denies nausea, vomiting, abdominal pain, diarrhea, constipation, melena. : Denies dysuria, frequency, incontinence, hematuria, urinary retention. MUSCULOSKELETAL: denies weakness, joint pain, or bony pain SKIN: See HP NEUROLOGIC: Denies weakness, headache, numbness, change in speech, confusion, seizures, incoordination. PSYCHIATRIC: No concerning psychosocial issues. 12 point review of systems is negative except for those stated above Patient History Medical History Spontaneous vaginal delivery Subchorionic hematoma (~07/16/19) (spontaneous vaginal delivery) (~07/26/18) Umbilical hernia with obstruction Surgical History Anesthesia H/O umbilical hernia repair (~04/23/18) Family History Grandfather Hypercholesteremia Father Hypercholesteremia Prostate cancer Grandfather Lung cancer Grandmother Hypercholesteremia Diabetes mellitus Social History marital status: number of children: 2 ((intended parents have one child)) household members: spouse and children lives independently: Yes housing: house pets and animals: Yes (1 cat, aware of toxo; intended parents have 1 dog) education level: other (Intended mother is PhD pharmacist) 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 occupational exposures/hazards: No special west needs: No travel history: over 6 months ago seatbelt use: always water heater temp set < 120 deg: Yes working smoke detector in home: Yes fire extinguisher in home: Yes carbon monox detector in home: Yes firearms in home: No do you feel safe at home: Yes Smoking Status: Never smoker second hand exposure: No alcohol intake: former substance use type: does not use during the past year weight has: remained stable well-balanced diet: daily or most days daily servings fruits/ve-4 caffeine: Yes (Occasional, minimal) Type(s) of exercise: walking, aerobic and running frequency: 3-4 times per week Smoking Status: Never smoker alcohol intake frequency: 0-2 drinks per day Substance Use Type: does not use Exam Narrative Exam Narrative: GENERAL: [31] year old patient appears stated age. Well-developed patient, in mild distress. HEAD: Atraumatic. Normocephalic. EYES: Pupils equal round and reactive. Extraocular motions intact. No scleral icterus. No injection or drainage. ENT: Nose without bleeding, purulent drainage. Throat without erythema, tonsillar hypertrophy or exudate. Airway patent. NECK: Trachea midline. Non tender CARDIOVASCULAR: Regular rate and rhythm without murmurs, gallops, or rubs. CHEST: Left breast tender to palp in Left lower outer quadrant with minimal erythema, no induration or fluctuance RESPIRATORY: Clear to auscultation. Breath sounds equal bilaterally. No wheezes, rales, or rhonchi. GASTROINTESTINAL: Abdomen soft, non-tender, nondistended. EXTREMITIES: No edema or joint tenderness. BACK: Nontender without deformity or crepitance. No flank tenderness. NEURO: AOx3. SKIN: No rash or erythema of visible areas Initial Vital Signs Initial Vital Signs: Vital Signs Temperature 98.5 F 08/13/22 04:21 Pulse Rate 96 H 08/13/22 04:21 Respiratory Rate 18 08/13/22 04:21 Blood Pressure 122/62 08/13/22 04:21 Pulse Oximetry 100 08/13/22 04:21 Oxygen Delivery Method Room Air 08/13/22 04:21 Course Vital Signs Vital signs: Vital Signs - 8 hr 08/13/22 04:21 Temperature 98.5 F Pulse Rate 96 H Respiratory Rate 18 Blood Pressure 122/62 Pulse Oximetry 100 Oxygen Delivery Method Room Air MDM - Skin/Abscess/Foreign Bdy MDM Narrative Medical decision making narrative: []31 year old patient presents with left breast pain, some redness and tenderness, actively breast-feeding Multiple etiologies for patient's symptoms considered including, but not limited to: [Engorgement, abscess, versus mastitis] Prior Charts reviewed in our EMR Primary Historian: patient Imaging reviewed: No evidence of abscess, ultrasound is suggestive of mastitis Patient's symptoms improved over duration of stay with above-stated therapies. Findings and discharge diagnosis discussed with patient/family followed by verbalization of understanding Return precautions discussed with patient/family whom verbalize understanding of diagnosis and plan Discharge Plan Departure Patient Disposition: Home Clinical Impression: Mastitis Instructions: DI for Mastitis Activity Restrictions/Additional Instructions: *You have been diagnosed with [left breast lactational mastitis] *What to do: *Please continue to take your regular medications as directed. [ x] New medication prescriptions sent to your pharmacy: [[facility] ] [ ] New medication written as a paper prescription [ ] No new medications given *Please follow up with your primary care provider in 2-3 days, call for an appointment. Let them know you were seen in the Emergency Department and that we ask that you be seen in follow up. We will electronically transmit a record of today's note if your PCP is in our system *If you do not have a primary care provider please contact the [facility] Resource line at [phone]. They will ask some questions about your medical history and help get you set up with a doctor in the community. *Return to Emergency Department if you should have any new, worsening or concerning symptoms, such as [fever greater than 101 F, shaking chills, worsening pain, persistent vomiting or other bothersome symptoms] Prescriptions: New dicloxacillin 500 mg capsule 500 mg PO Q6H 7 Days Qty: 28 0RF No Action labetalol 100 mg tablet 100 mg PO TID PRN (Reason: hypertension) Qty: 90 1RF Fish Oil 100-160-1,000 mg capsule See Rx Instructions .ROUTE .COMPLEX Rx Instructions: take 1 tab daily labetalol 100 mg tablet 100 mg PO BID Qty: 20 0RF Rx Instructions: Take 1 pill every 12 hours until directed to discontinue. Referrals: Yamilex Edwards MD [Primary Care Provider] - Stand Alone Forms: Patient Portal/API
--- NOTE | 2022-08-13 04:36 | PC.NURSE ---
pt has small reddened area to the left outer portion of the left breast, Dr Pryor at bedside to examine
--- NOTE | 2022-08-13 05:20 | DI.US.S_ITS ---
PROCEDURE: US BREAST LT LIMITED COMPARISON: None. INDICATIONS: PAIN AND REDNESS, ABSCESS FINDINGS: Multiple grayscale and color Doppler images of the left breast were acquired over the area of clinical concern. This localized to the lateral aspect of the left breast between the 2 and 3 o'clock position. There is mild hyperemia of the soft tissues and prominent ducts. No suspicious mass. No abnormal fluid collection identified. A more prominent ectatic duct noted at the 2 o'clock position 10 cm from the nipple. There appears to be internal debris. IMPRESSION: Diffuse soft tissue swelling of the lateral left breast without focal fluid collection/abscess. Findings are likely related to mastitis. Scattered ductal ectasia. Largest contains internal debris. 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 Overall imaging assessment: BI-RADS 2 (benign). Dictated by: Bucky Yanez M.D. on 08/13/2022 at 8:52 Approved by: Bucky Yanez M.D. on 08/13/2022 at 8:55
[2022-08-13 07:21] VITALS: PULSE 92; RESP 18; O2SAT 98
== END 2022-08-13 07:22 | disposition home or self-care (01) ==
PROVIDERS: Emergency Provider Emergency Medicine; PCP Family Medicine
DX: N61.0 Mastitis without abscess (principal)
CPT/HCPCS: 76642; 99281; 99283

== ENCOUNTER → 2022-08-30 14:47 | Outpatient (CLI) | payer OTHER, SELFPAY ==
[2022-08-30 15:06] LABS: Add Manual Diff / Slide Review NO; Basophils Absolute Auto 100 /uL (0-100); Eosinophils Absolute Auto 600 /uL (0-450); Eosinophils Percent Auto 11.9 % (2-4); Hematocrit 35.2 % (36-46); Hemoglobin 11.9 g/dL (12.0-16.0); Lymphocytes Absolute Auto 1600 /uL (1100-4500); Lymphocytes Percent Auto 32.7 % (25-40); Mean Corpuscular HGB Conc 33.8 % (30-36); Mean Corpuscular Hemoglobin 30.1 PG (26-34); Mean Corpuscular Volume 89.1 fL (80-100); Monocytes Absolute Auto 500 /uL (0-900); Monocytes Percent Auto 9.1 % (3-14); Neutrophils Absolute Auto 2300 /uL (1500-7000); Neutrophils Percent Auto 45.3 % (50-75); Platelet Count 381 X10^3/uL (150-400); Red Blood Cell Count 3.95 X10^6/uL (4.0-5.2); Red Cell Distribution Width 15.3 % (11.6-14.8)
[2022-08-30 15:26] LABS: Alanine Aminotransferase 27 IU/L (<35); Albumin 4.3 g/dL (3.5-5.0); Albumin Globulin Ratio 1.3 (1.0-2.8); Alkaline Phosphatase 45 U/L (38-126); Aspartate Aminotransferase 26 IU/L (14-36); BUN Creatinine Ratio 14.6 (6-22); Bilirubin Total 0.3 mg/dL (0.2-1.3); Blood Urea Nitrogen 12 mg/dL (7-17); Calcium 9.4 mg/dL (8.4-10.2); Carbon Dioxide 28 mmol/L (22-32); Chloride 104 mmol/L (98-107); Estimated Glomerular Filt Rate > 60 mL/min (>60); Globulin 3.3 g/dL (1.7-4.1); Glucose 94 mg/dL (70-100); HEMOLYSIS < 15 (0-50); Potassium 3.9 mmol/L (3.4-5.1); Sodium 139 mmol/L (137-145); Total Protein 7.6 g/dL (6.3-8.2)
[2022-08-30 15:53] LABS: TSH w/ Reflex to FT4 0.81 uIU/mL (0.47-4.68)
== END ==
PROVIDERS: PCP Family Medicine; Referring Provider Physician Assistant; Visit Provider Physician Assistant
DX: D64.9 Anemia, unspecified (principal); O16.5 Unspecified maternal hypertension, complicating the puerperium; R00.2 Palpitations; R80.9 Proteinuria, unspecified
CPT/HCPCS: 36415; 80053; 84443; 85025

== ENCOUNTER → 2022-09-09 11:17 | Outpatient (CLI) | payer OTHER, SELFPAY ==
[2022-09-09 15:12] LABS: Collection Time Urine 24 Hours; Protein (Total) Urine Random < 5 mg/dL (0-12); Total Protein 24 Hour Urine 125 mg/day (42-225); Total Volume Urine 2500 mL
== END ==
PROVIDERS: PCP Family Medicine; Referring Provider Physician Assistant; Visit Provider Physician Assistant
DX: D64.9 Anemia, unspecified (principal); O16.5 Unspecified maternal hypertension, complicating the puerperium; R00.2 Palpitations; R80.9 Proteinuria, unspecified
CPT/HCPCS: 84156

== ENCOUNTER → 2022-09-14 15:10 | Outpatient (CLI) | payer OTHER, SELFPAY ==
[2022-09-14 17:13] LABS: D Dimer 269 ng/ml (<500)
== END ==
PROVIDERS: PCP Family Medicine; Referring Provider Family Medicine; Visit Provider Family Medicine
DX: R00.2 Palpitations (principal); O16.5 Unspecified maternal hypertension, complicating the puerperium; D64.9 Anemia, unspecified; N61.0 Mastitis without abscess
CPT/HCPCS: 36415; 85379

== ENCOUNTER → 2022-09-17 14:29 | Outpatient (CLI) | payer OTHER, SELFPAY ==
[2022-09-17 15:21] LABS: Appearance Urine UA CLEAR; Bilirubin Urine UA NEGATIVE (NEGATIVE); Glucose Urine UA NEGATIVE (Negative); Ketones Urine UA NEGATIVE (NEGATIVE); Leukocyte Esterase Urine UA 2+ (NEGATIVE); Nitrite Urine UA NEGATIVE (Negative); Occult Blood Urine UA TRACE-INTACT (Negative); Protein Urine UA NEGATIVE (Negative); Urobilinogen Urine UA 0.2 E.U./dL (0.2)
[2022-09-17 15:22] LABS: pH Urine UA 5.5 (4.5-8.0)
[2022-09-17 15:33] LABS: Bacteria Urine Few (2-10); Color Urine UA Straw; RBC Urine 0-1/HPF (0-5/HPF); Squamous Epithelial Cell Urine 1-5 /HPF (0-5/HPF); WBC Urine 10-30/HPF (0-5/HPF)
[2022-09-17 15:48] LABS: Pregnancy Test Urine Negative (Negative)
== END ==
PROVIDERS: PCP Family Medicine; Visit Provider Student in an Organized Health Care Education/Training Program
DX: N89.8 Other specified noninflammatory disorders of vagina (principal); N39.0 Urinary tract infection, site not specified; R39.89 Other symptoms and signs involving the genitourinary system
CPT/HCPCS: 81003; 81015; 81025; 87086; 87210

== ENCOUNTER 2022-09-22 14:52 | Emergency (ER) | payer OTHER, SELFPAY ==
[2022-09-22 15:11] VITALS: BP 117/66; PULSE 82; RESP 18; TEMP 36.7; O2SAT 98; BMI 21.5
--- NOTE | 2022-09-22 15:18 | DI.RAD.S_ITS ---
PROCEDURE: XR CHEST 1V INDICATIONS: chest pain TECHNIQUE: One view of the chest was acquired. COMPARISON: None. FINDINGS: Surgical changes and devices: None. Lungs and pleura: Lungs are clear. No pleural effusions or pneumothorax. Mediastinum: Mediastinal contours appear normal. Heart size is normal. Bones and chest wall: No suspicious bony lesions. Overlying soft tissues appear unremarkable. IMPRESSION: No acute cardiopulmonary process. Dictated by: Rashi Ji M.D. on 09/22/2022 at 15:54 Approved by: Rashi Ji M.D. on 09/22/2022 at 15:54
[2022-09-22] MEDS: ASPIRIN 81 MG CHEW TAB 324 MG PO (15:31)
[2022-09-22 15:57] LABS: Prothrombin Time 11.5 SECONDS (10.1-12.7)
[2022-09-22 15:59] LABS: PTT Partial Thromboplastin Tim 34 SECONDS (26-36)
[2022-09-22 16:00] LABS: Alanine Aminotransferase 27 IU/L (<35); Albumin 4.5 g/dL (3.5-5.0); Albumin Globulin Ratio 1.6 (1.0-2.8); Alkaline Phosphatase 44 U/L (38-126); Aspartate Aminotransferase 26 IU/L (14-36); BUN Creatinine Ratio 21.5 (6-22); Bilirubin Total 0.3 mg/dL (0.2-1.3); Blood Urea Nitrogen 17 mg/dL (7-17); Calcium 8.7 mg/dL (8.4-10.2); Carbon Dioxide 24 mmol/L (22-32); Chloride 105 mmol/L (98-107); Creatine Kinase 153 U/L (30-135); Estimated Glomerular Filt Rate > 60 mL/min (>60); Globulin 2.9 g/dL (1.7-4.1); Glucose 118 mg/dL (70-100); HEMOLYSIS < 15 (0-50); Lipase 91 U/L (23-300); Potassium 3.9 mmol/L (3.4-5.1); Sodium 139 mmol/L (137-145); Total Protein 7.4 g/dL (6.3-8.2)
[2022-09-22 16:08] LABS: Add Manual Diff / Slide Review NO; Basophils Absolute Auto 100 /uL (0-100); Basophils Percent Auto 1.1 % (0-2); Eosinophils Absolute Auto 600 /uL (0-450); Eosinophils Percent Auto 9.9 % (2-4); Hematocrit 35.8 % (36-46); Hemoglobin 12.1 g/dL (12.0-16.0); Lymphocytes Absolute Auto 2000 /uL (1100-4500); Lymphocytes Percent Auto 32.5 % (25-40); Mean Corpuscular HGB Conc 33.8 % (30-36); Mean Corpuscular Hemoglobin 30.4 PG (26-34); Mean Corpuscular Volume 89.9 fL (80-100); Monocytes Absolute Auto 500 /uL (0-900); Monocytes Percent Auto 7.7 % (3-14); Neutrophils Absolute Auto 2900 /uL (1500-7000); Neutrophils Percent Auto 48.8 % (50-75); Platelet Count 301 X10^3/uL (150-400); Red Blood Cell Count 3.98 X10^6/uL (4.0-5.2); Red Cell Distribution Width 15.1 % (11.6-14.8)
[2022-09-22 16:11] LABS: Troponin I < 0.012 ng/mL (0.01-0.034)
[2022-09-22 16:15] LABS: CKMB % Relative Index 0.6 % (1.5-5.0)
[2022-09-22 18:14] VITALS: PULSE 66; RESP 12
[2022-09-22 18:30] VITALS: BP 102/55; PULSE 66; RESP 11
[2022-09-22 18:40] LABS: Troponin I < 0.012 ng/mL (0.01-0.034)
--- NOTE | 2022-09-22 18:48 | ED.CHESTPAIN ---
HPI - Chest Pain General Chief Complaint: Chest Pain Stated Complaint: SOB, Chest pain Time Seen by Provider: 09/22/22 18:48 History of Present Illness HPI narrative: Patient 31-year-old female 3 months history of preeclampsia possible cardiomyopathy followed by cardiology [facility] presents today with chest discomfort. She reports that she was sitting at her desk at work feeling chest pressure. It was nonradiating lasted for about an hour and resolved. She reports some short of breath while walking up hills but it does not stop her. She was able to ambulate yesterday without any difficulty as well as today. She has felt like she is been swollen that she has no obvious edema. She is scheduled for an outpatient echocardiogram on October 03. She has no nausea vomiting or fever. She was also recently treated for UTI by walk-in clinic she has said that her symptoms have resolved Related Data Allergies Allergy/AdvReac Type Severity Reaction Status Date / Time hydrocodone [HYDROCODONE] AdvReac Mild nausea Verified 08/30/22 13:37 Review of Systems Review of Systems ROS Unobtainable: All systems reviewed & are unremarkable except as noted in HPI and below Patient History Medical History Encounter for supervision of other normal , first trimester Spontaneous vaginal delivery Subchorionic hematoma (~07/16/19) Supervision of normal first in third trimester Surrogate (spontaneous vaginal delivery) (~07/26/18) Umbilical hernia with obstruction Surgical History Anesthesia H/O umbilical hernia repair (~04/23/18) Family History Grandfather Hypercholesteremia Father Hypercholesteremia Prostate cancer Grandfather Lung cancer Grandmother Hypercholesteremia Diabetes mellitus Social History marital status: number of children: 2 household members: spouse and children lives independently: Yes housing: house pets and animals: Yes (1 cat, aware of toxo; intended parents have 1 dog) education level: other occupational status: employed current occupational exposures/hazards: No special west needs: No travel history: over 6 months ago seatbelt use: always water heater temp set < 120 deg: Yes working smoke detector in home: Yes fire extinguisher in home: Yes carbon monox detector in home: Yes firearms in home: No do you feel safe at home: Yes Smoking Status: Never smoker second hand exposure: No alcohol intake: former substance use type: does not use during the past year weight has: remained stable well-balanced diet: daily or most days daily servings fruits/ve-4 caffeine: Yes (Occasional, minimal) Type(s) of exercise: walking, aerobic and running frequency: 3-4 times per week Smoking Status: Never smoker alcohol intake frequency: 0-2 drinks per day Substance Use Type: does not use Exam Initial Vital Signs Initial Vital Signs: Vital Signs Temperature 98.0 F 09/22/22 15:11 Pulse Rate 82 09/22/22 15:11 Respiratory Rate 18 09/22/22 15:11 Blood Pressure 117/66 09/22/22 15:11 Pulse Oximetry 98 09/22/22 15:11 Oxygen Delivery Method Room Air 09/22/22 15:11 GENERAL: Alert well-appearing 31-year-old female and in no acute distress. HEENT: Head atraumatic,EOMI, pupils reactive, face symmetric, moist mucous membranes CARDIOVASCULAR: Regular rate and rhythm without murmurs, rubs or gallops. RESPIRATORY: Breath sounds equal bilaterally, no wheezes rales or rhonchi. ABDOMEN: Soft, nontender. Normoactive bowel sounds all 4 quadrants. No guarding or rebound. EXTREMITIES: Normal range of motion, no clubbing or edema. Neurovascularly intact NEUROLOGICAL: Alert and oriented x4. SKIN: Warm, dry, no laceration, no petechiae, no rashes or lesions. Course Orders Ordered: Discontinued Medications Aspirin (Aspirin 81 Mg Chew Tab) 324 mg PO NOW ONE Stop: 09/22/22 15:19 Last Admin: 09/22/22 15:31 Dose: 324 mg Documented By: IRNIA Vital Signs Vital signs: Vital Signs - 8 hr 09/22/22 15:11 09/22/22 18:14 09/22/22 18:30 Temperature 98.0 F Pulse Rate 82 66 Respiratory Rate 18 12 Blood Pressure 117/66 102/55 L Pulse Oximetry 98 Oxygen Delivery Method Room Air 09/22/22 18:30 09/22/22 19:00 09/22/22 19:00 Temperature Pulse Rate 66 68 Respiratory Rate 11 L 12 Blood Pressure 102/61 Pulse Oximetry Oxygen Delivery Method MDM - Chest Pain Lab Data 09/22/22 15:34 09/22/22 15:34 Labs: Lab Results 09/22/22 09/22/22 09/22/22 Range/Units 15:34 15:34 15:34 WBC 6.0 (4.5-11.0) X10^3/uL RBC 3.98 L (4.0-5.2) X10^6/uL Hgb 12.1 (12.0-16.0) g/dL Hct 35.8 L (36-46) % MCV 89.9 (80-100) fL MCH 30.4 (26-34) PG MCHC 33.8 (30-36) % RDW 15.1 H (11.6-14.8) % Plt Count 301 (150-400) X10^3/uL Neut % (Auto) 48.8 L (50-75) % Lymph % (Auto) 32.5 (25-40) % Barry % (Auto) 7.7 (3-14) % Eos % (Auto) 9.9 H (2-4) % Baso % (Auto) 1.1 (0-2) % Neut # (Auto) 2900 (0019-4835) /uL Lymph # (Auto) 2000 (8638-9128) /uL Barry # (Auto) 500 (0-900) /uL Eos # (Auto) 600 H (0-450) /uL Baso # (Auto) 100 (0-100) /uL PT 11.5 (10.1-12.7) SECONDS INR 1.0 (0.9-1.3) APTT 34 (26-36) SECONDS D-Dimer (<500) ng/ml Sodium 139 (137-145) mmol/L Potassium 3.9 (3.4-5.1) mmol/L Chloride 105 (98-107) mmol/L Carbon Dioxide 24 (22-32) mmol/L BUN 17 (7-17) mg/dL Creatinine 0.79 (0.52-1.04) mg/dL Estimated GFR > 60 (>60) mL/min BUN/Creatinine Ratio 21.5 (6-22) Glucose 118 H (70-100) mg/dL Calcium 8.7 (8.4-10.2) mg/dL Magnesium 2.0 (1.6-2.3) mg/dL Total Bilirubin 0.3 (0.2-1.3) mg/dL AST 26 (14-36) IU/L ALT 27 (<35) IU/L Alkaline Phosphatase 44 (38-126) U/L Total Creatine Kinase 153 H (30-135) U/L CK-MB (CK-2) 0.90 (<2.37) ng/mL CK-MB (CK-2) Rel Index 0.6 L (1.5-5.0) % Troponin I < 0.012 (0.01-0.034) ng/mL NT-Pro-B Natriuret Pep (<125) pg/mL Total Protein 7.4 (6.3-8.2) g/dL Albumin 4.5 (3.5-5.0) g/dL Globulin 2.9 (1.7-4.1) g/dL Albumin/Globulin Ratio 1.6 (1.0-2.8) Lipase 91 (23-300) U/L 09/22/22 09/22/22 09/22/22 Range/Units 15:34 15:34 18:00 WBC (4.5-11.0) X10^3/uL RBC (4.0-5.2) X10^6/uL Hgb (12.0-16.0) g/dL Hct (36-46) % MCV (80-100) fL MCH (26-34) PG MCHC (30-36) % RDW (11.6-14.8) % Plt Count (150-400) X10^3/uL Neut % (Auto) (50-75) % Lymph % (Auto) (25-40) % Barry % (Auto) (3-14) % Eos % (Auto) (2-4) % Baso % (Auto) (0-2) % Neut # (Auto) (6576-9329) /uL Lymph # (Auto) (1040-1102) /uL Barry # (Auto) (0-900) /uL Eos # (Auto) (0-450) /uL Baso # (Auto) (0-100) /uL PT (10.1-12.7) SECONDS INR (0.9-1.3) APTT (26-36) SECONDS D-Dimer < 215 (<500) ng/ml Sodium (137-145) mmol/L Potassium (3.4-5.1) mmol/L Chloride (98-107) mmol/L Carbon Dioxide (22-32) mmol/L BUN (7-17) mg/dL Creatinine (0.52-1.04) mg/dL Estimated GFR (>60) mL/min BUN/Creatinine Ratio (6-22) Glucose (70-100) mg/dL Calcium (8.4-10.2) mg/dL Magnesium (1.6-2.3) mg/dL Total Bilirubin (0.2-1.3) mg/dL AST (14-36) IU/L ALT (<35) IU/L Alkaline Phosphatase (38-126) U/L Total Creatine Kinase (30-135) U/L CK-MB (CK-2) (<2.37) ng/mL CK-MB (CK-2) Rel Index (1.5-5.0) % Troponin I < 0.012 (0.01-0.034) ng/mL NT-Pro-B Natriuret Pep 47 (<125) pg/mL Total Protein (6.3-8.2) g/dL Albumin (3.5-5.0) g/dL Globulin (1.7-4.1) g/dL Albumin/Globulin Ratio (1.0-2.8) Lipase (23-300) U/L Imaging Data Chest x-ray: Radiologist's Impression: PROCEDURE:? XR CHEST 1V ? INDICATIONS:? chest pain ? TECHNIQUE:? One view of the chest was acquired.? ? COMPARISON:? None. ? FINDINGS:? ? Surgical changes and devices:? None.? ? Lungs and pleura:? Lungs are clear.? No pleural effusions or pneumothorax.? ? Mediastinum:? Mediastinal contours appear normal.? Heart size is normal.? ? Bones and chest wall:? No suspicious bony lesions.? Overlying soft tissues appear unremarkable.? ? IMPRESSION:? No acute cardiopulmonary process. ? ? ? Dictated by: Rashi Ji M.D. on 09/22/2022 at 15:54 ? ? ECG Data Interpretation: Normal sinus rhythm rate 79 PA interval 138 QRS [address] changes no T-wave inversions MDM Narrative Medical decision making narrative: Patient healthy 31-year-old female followed closely by cardiology at [facility] presents today with chest pressure lasting for about 1 hour. 2- troponins no EKG changes chest x-ray is negative. Other blood work today is also reassuring without leukocytosis anemia electrolyte abnormality or ANGELIQUE. She has no clinical features of edema or fluid overload. BNP and D-dimer also negative unlikely to be pulmonary embolism. No evidence of congestive heart failure on clinical exam or by blood work. She is scheduled for an outpatient echocardiogram. At this time I see no need for any further imaging or workup. She overall his feeling better. Discharge Plan Departure Patient Disposition: Home Clinical Impression: Atypical chest pain Instructions: DI for Atypical Chest Pain Activity Restrictions/Additional Instructions: *You have been diagnosed with atypical chest pain *What to do: At this time blood work is overall reassuring no evidence of fluid retention on blood work. Unlikely to be a blood clot as well. 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
[2022-09-22 19:00] VITALS: BP 102/61; PULSE 68; RESP 12
[2022-09-22 19:11] LABS: D Dimer < 215 ng/ml (<500)
[2022-09-22 19:30] VITALS: BP 97/59; PULSE 57; RESP 16
[2022-09-22 19:45] LABS: NT-proBNP (BNP-Adult 18+) 47 pg/mL (<125)
== END 2022-09-22 19:58 | disposition home or self-care (01) ==
PROVIDERS: Emergency Medicine; Emergency Provider Emergency Medicine; PCP Family Medicine
DX: R07.89 Other chest pain (principal); R06.02 Shortness of breath
CPT/HCPCS: 36415; 71045; 80053; 82550; 82553; 83690; 83735; 83880; 84484; 85025; 85379; 85610; 85730; 93005; 99283; 99284

== ENCOUNTER → 2023-03-02 09:42 | Outpatient (CLI) | payer OTHER, SELFPAY | PROVIDERS: PCP Family Medicine; Visit Provider Nurse Practitioner Family | DX: J02.9 Acute pharyngitis, unspecified (principal) | CPT/HCPCS: 87070 ==